=== PATIENT | male | born 1960 | race African-American/Black ===

== ENCOUNTER 2019-07-26 19:17 | Emergency (ER) | payer MEDICARE, MEDICAID ==
[2019-07-26] MEDS ORDERED: HYDROcodone/Acetaminophen 10/325 mg Tablet ONE (19:56)
== END 2019-07-26 20:05 | disposition home or self-care (01) ==
LOC: ERS 19:17
DX: K03.81 Cracked tooth (principal); K02.9 Dental caries, unspecified; I10 Essential (primary) hypertension; J45.909 Unspecified asthma, uncomplicated; E11.9 Type 2 diabetes mellitus without complications; Z79.899 Other long term (current) drug therapy; Z79.84 Long term (current) use of oral hypoglycemic drugs
CPT/HCPCS: 99282

== ENCOUNTER 2019-09-05 11:28 | Emergency (ER) | payer MEDICARE, MEDICAID | END 2019-09-05 12:00 | disposition left against medical advice (07) | LOC: ERS 11:28 | DX: Z53.21 Procedure and treatment not carried out due to patient leaving prior to being seen by health care provider (principal) ==

== ENCOUNTER 2022-06-30 09:15 | Emergency (ER) | payer MEDICAID, MEDICARE | END 2022-06-30 10:45 | disposition home or self-care (01) | LOC: ERS 09:15 | DX: M25.561 Pain in right knee (principal); I10 Essential (primary) hypertension ==

== ENCOUNTER 2023-02-27 09:35 | Emergency (ER) | payer MEDICARE, OTHER ==
[2023-02-27] MEDS ORDERED: Iopamidol-370 76% 500 ML MDV (1 ML CHARGE) ONE (10:09)
[2023-02-27 10:25] LABS: #Basophils 0.1 thou/uL (0.0-0.2); #Eosinphils 0.1 thou/uL (0.0-0.7); #Monocytes 0.6 thou/uL (0.11-0.59); #Neutrophils 5.1 thou/uL (1.40-6.50); %Basophils 0.9 % (0.0-1.0); %Eosinophils 1.3 % (0.0-10.0); %Lymphocytes 33.8 % (21.0-51.0); %Monocytes 6.8 % (0.0-10.0); %Neutrophils 57.2 % (42.0-75.0); Hemoglobin 15.9 g/dL (14.0-18.0); Mean Corpuscular HGB CONC 32.5 g/dL (32.0-36.0); Mean Corpuscular Hemoglobin 29.4 pg (27.0-31.0); Mean Corpuscular Volume 90.5 fl (78.0-98.0); Platelet Count 210 10x3/uL (130-400); RBC Distribution Width 13.7 % (11.5-14.5)
[2023-02-27 10:33] LABS: Bacteria/HPF None Seen HPF (None Seen); Bilirubin Negative (Negative); Blood, Urine Negative (Negative); Clarity Clear (Clear); Glucose, Urine (Dipstick) Normal (Negative); Ketone, Urine Negative (Negative); Leukocyte 25 Leu/uL (Negative); Nitrite Negative (Negative); Protein, Urine (Dipstick) 30 mg/dL (Neg-Trace); RBC/HPF 0-3 HPF (0-3); Specific Gravity, Urine 1.028 (1.002-1.036); Squamous Epithelial 0-3 HPF (0-3); Urobilinogen Normal mg/dL (Less than 2); pH, Urine 5.5 (5.0-9.0)
[2023-02-27 10:42] LABS: ALT (SGPT) 28 U/L (8-55); AST (SGOT) 28 U/L (5-34); Alkaline Phosphatase 82 U/L (40-110); Anion Gap 14 mmol/L (10-20); BUN (Urea Nitrogen) 14 mg/dL (8.4-25.7); Bilirubin, Total 0.4 mg/dL (0.2-1.2); Calc. Creatinine Clearance 0 mL/min (70-130); Calcium 9.5 mg/dL (7.8-10.44); Carbon Dioxide 28 mmol/L (23-31); Chloride 101 mmol/L (98-107); Estimated GFR 67; Globulin 3.2 g/dL (2.4-3.5); Glucose 118 mg/dL (80-115); Potassium 4.6 mmol/L (3.5-5.1); Protein, Total 7.2 g/dL (5.8-8.1); Sodium 138 mmol/L (136-145)
[2023-02-27] MEDS ORDERED: predniSONE 20 MG TAB ONE (11:06)
== END 2023-02-27 13:31 | disposition home or self-care (01) ==
LOC: ERS 09:35
DX: R10.9 Unspecified abdominal pain (principal); I10 Essential (primary) hypertension; E78.00 Pure hypercholesterolemia, unspecified; E11.9 Type 2 diabetes mellitus without complications; J45.909 Unspecified asthma, uncomplicated; Z79.899 Other long term (current) drug therapy; Z79.84 Long term (current) use of oral hypoglycemic drugs
CPT/HCPCS: 36415; 71045; 74177; 80053; 81003; 81015; 84484; 85025; 93005; J7512; Q9967